=== PATIENT | female | born 1980 ===

== ENCOUNTER → 2022-04-01 | Day surgery (SDC) | payer OTHER ==
[~2022-04-01] MED LIST: CEFAZOLIN SODIUM 1 GM/VIAL ONE; FENTANYL CITR 100 MCG/2 ML ONE; HYDROCODONE/APAP 10/325 TAB ONE; LIDOCAINE 1% MPF 5 ML VIAL ONE; MIDAZOLAM HCL 2 MG/2 ML INJ ONE; NS 0.9% VIAL 10 ML ONE; ONDANSETRON 4 MG/2 ML VIAL ONE; Ringers Lactate 1,000 ML IV ONE; propofoL 200 MG/20 ML VIAL IV ONE
[2022-04-01 06:32] LABS: Absolute Lymphocytes (CBC) 8.3 K/uL (0.7-4.9); Hematocrit 46.4 % (36.0-45.0); Lymphocytes % 44.2 % (15.3-44.8); MCV 90.9 fL (80-100); MPV 10.2 fL (7.6-11.3); RBC Red Blood Cell Count 5.11 M/uL (3.86-4.86)
[2022-04-01 07:27] LABS: Potassium 3.2 mmol/L (3.5-5.1)
--- NOTE | 2022-04-01 09:23 | P.BOP ---
Preoperative diagnosis: left and right buttock tender subQ masses Postoperative diagnosis: same Primary procedure: 1. Excisional biopsy of tender left buttock tender subQ mass 8x4cm Secondary procedure: 2. Excisional biopsy of tender right buttock tender subQ mass 4x4cm Estimated blood loss: <10cc Specimen: masses deep Findings: deep subQ masses Anesthesia: General Complications: None Drain(s): FRANCY drain Transferred to: Recovery Room Condition: Good
[2022-04-01 12:29] VITALS: TEMP 97; O2SAT 96
[2022-04-01 12:58] VITALS: BP 110/96
--- NOTE | 2022-04-01 13:52 | RAD REPORT ---
EXAM DESCRIPTION: RAD - Chest Pa And Lat (2 Views) - 04/01/2022 5:50 am CLINICAL HISTORY: The patient is 42 years old and is Female; PREPROCEDURE SCREENING TECHNIQUE: Frontal and lateral views of the chest. COMPARISON: No relevant prior studies available. FINDINGS: Lungs: Unremarkable. No consolidation. Pleural space: Unremarkable. No pneumothorax. Heart: Unremarkable. Mediastinum: Unremarkable. Bones/joints: Unremarkable. Upper abdomen: Suggestion of a partially visualized IVC filter overlying the abdomen. Linear metallic density overlying the left upper quadrant. IMPRESSION: No acute findings in the chest. Electronically signed by: Carter Schneider MD 04/01/2022 6:00 AM SERICULTURIST Due to temporary technical issues with the PACS/Fluency reporting system, reports are being signed by the in house radiologists without review as a courtesy to insure prompt reporting. The interpreting radiologist is fully responsible for the content of the report.
--- NOTE | 2022-04-01 16:23 | EKG ---
Test Date: 2022-04-01 Test Time: 05:52:01 On Site Services Specialist: SHONA MEASUREMENT RESULTS: Intervals: Rate: 78 LA: 190 QRSD: 100 QT: 406 QTc: 462 [place]: P: 60 LA: 190 QRS: -25 T: 33 INTERPRETIVE STATEMENTS: Normal sinus rhythm Nonspecific T wave abnormality Prolonged QT Abnormal ECG Compared to ECG 08/21/2015 19:01:40 T-wave abnormality now present Prolonged QT interval now present Electronically Signed On 04-01-22 16:22:51 COAT OPERATOR by Asif Knight
--- NOTE | 2022-04-01 20:39 | OP ---
Date of Procedure: 04/01/2022 Surgeon: Angelo Nolen MD Preoperative Diagnosis: Left and right buttock tender subcutaneous masses. Postoperative Diagnosis: Left and right buttock tender subcutaneous masses. Procedures: 1.Excisional biopsy of tender left buttock subcutaneous mass 8 x 4 cm. 2.Excisional biopsy of right buttock tender subcutaneous mass of 4 x 4 cm. Estimated Blood Loss: Less than 10 mL. Specimen: Mass deep into the subcutaneous tissue. Findings: Deep subcutaneous masses. Anesthesia: General plus local. Complications: None. Drainage: FRANCY #7 on each side. Indications: This is the case of a female, who comes to us with tender subcutaneous masses that are increasing in size and discomfort giving her pain, and she wants them excised. She has an extensive surgical and medical history. The benefits, alternatives, and risks of excisional biopsy of masses f ully explained which include, but not limited to infection, bleeding, damage to adjacent structures, anesthesia complication, recurrence, PR, and even . She also understands the risks of seromas a nd hematoma. She was advised the importance of avoiding trauma to that area after the surgery. She understood and signed a consent. Procedure In Detail: The patient was brought to the operating room, placed in supine position. Anes thesia was done without complication. Before the surgery in day surgery, we had marked the area of me joseph and the patient. Because of the location, we have to do this in 2 stages. We are going t o do the right side first and put in lateral decubitus position, then broke scrub, re-scrubbed again with the patient positioned on the left lateral decubitus position, so it is going to be two stages f or this case. First we started with the right side, so we moved the patient in her lateral decubitus position. The right buttock was prepped and draped in a sterile fashion. Incision was made and thi s incision was carried down deep in the subcutaneous tissue. This mass is between the buttock muscle and about 2 cm deep from the subcutaneous tissue. We found the plane where the mass is and carefull y with the help of blunt dissection, we proceeded to dissect that area. Hemostasis obtained. Mass w as enucleated and removed. The patient tolerated the procedure well. Due to the large cavity in aylin t area, I believe the patient will be having seroma or hematoma. She has limited mobility, so I left a FRANCY drain in that region to try to minimize fluid, since patient will be putting pressure in that a donald, we are afraid, it may break the water seal. The FRANCY drain was left in that area and secured in p lace with 3-0 nylon. Then, we proceeded to close this in layers with a combination of 0 chromic and 3-0 chromic and the skin with ioana. Sponge count and instrument counts correct. Patient tolerate d the procedure well. Hemostasis was obtained before closure, also irrigation. The patient was cove red with sterile dressings. Then, after that we broke scrub, positioned the person carefully in the opposite side, which is a lateral decubitus position exposing the left buttock up. Once again, we sc rubbed the entire area off, and also we prepped and draped in the usual sterile fashion. We scrubbed , also we have instruments preserved to avoid cross-contamination. After time-out, once again, we pr oceeded to make an incision in that area, go deep in the subcutaneous tissue until we once again find the mass. This is multilobulated with a mass next to it, so it is 2 instead of 1, but they are next to each other. So, we used the same incision to remove those. Once we get the right layer and righ t plane, we proceeded to use blunt dissection to try to enucleate this mass intact. The mass was rem nirali. Once again, there was another one attached to it, that was also removed. That left once again even a larger cavity than the opposite side, and to be able to minimize seromas and hematomas, we pr oceeded to leave a FRANCY drain #7 through another incision site secured in place with a 3-0 nylon and th en we proceeded to close this in layers after hemostasis and irrigation and local anesthetic of 0 chr omic and 3-0 chromics were used and then the skin with ioana. Sponge count and instrument counts c orrect. Patient tolerated the procedure well. Patient sent to recovery in stable condition. Disposition: Home. Activity: As tolerated. No heavy lifting. Followup: In my office in 1 week. Call for appointment at [phone]. Instructions: Keep area dry for 48 hours and while the drains are there, try not to get it wet. Rec ord FRANCY output, q.24 hours. The patient stated multiple allergies, but no allergies to cephalosporin. MORENA/RONIT Voice ID: [id number] Report ID: [id number]
== END | disposition home or self-care (01) ==
LOC: DS 05:03
PROVIDERS: ATTEND Surgery
PROC: 0JB90ZZ Excision of Buttock Subcutaneous Tissue and Fascia, Open Approach (ICD-10-PCS; principal; 2022-04-01 08:15)
DX: R22.2 Localized swelling, mass and lump, trunk (principal); I96 Gangrene, not elsewhere classified
CPT/HCPCS: 93005; 85025; 80048; 36415; 88304; 71046; 11406; 11404; J2704 ×2; J2001; J2250; J3010; A4216; J7120; J2405; J0690